=== PATIENT | male | born 1955 | race African-American/Black ===

== ENCOUNTER 2016-10-28 11:38 | Emergency (ER) | payer OTHER ==
[2016-10-28 11:46] VITALS: BP 158/90; PULSE 87; TEMP 97.4; BMI 22.4
--- NOTE | 2016-10-28 12:25 | PDOC ---
"History of Present Illness - General Chief Complaint: Back Pain Stated Complaint: PAIN, REFILL RX Time Seen by Provider: 10/28/16 12:21 History Source: Patient Exam Limitations: No Limitations - History of Present Illness Initial Comments: 10/28/16 12:25 10/28/16 12:46 10/28/16 12:50 Chief complaint: Right sided lower back pain with radiation down right leg to foot since August 2016 History of present illness: Patient is a 61-year-old male with a history of hypertension who is been on dialysis at [facility] for the last 20 years. Patient reports that he was hospitalized at [facility] August 2016 due to a clogged infected port he developed right sided lower back pain that radiating down his right leg with tingling of his right foot. Patient reports that he had CAT scans of his back and MRIs however he was not told any official diagnosis. Patient is currently ambulating with a walker. Patient reports that he has been taking Tylenol [id number] with out relief of pain slightly minimizes pain. Patient reports that when he was in the hospital he was given oxycodone that helped and upon discharge tramadol which was not very effective according to patient. Patient does not know what caused his right sided lower back pain. Patient currently reports the pain is a 9 out of 10 right-sided lower back pain radiating down right leg to foot with slight tingling of his toes. 10/28/16 12:56 10/28/16 12:56 Occurred: reports: other (since 09/07) Severity: reports: severe (right sided lower back pain with radiculopathy rt. leg) Pain Location: reports: back (right sided lower back with radiation down rt. leg ) Method of Injury: Yes: unknown Modifying Factors: improves with: None Loss of Consciousness: no loss of consciousness Past History - Past Medical History Allergies/Adverse Reactions: Allergies Allergy/AdvReac Type Severity Reaction Status Date / Time No Known Allergies Allergy Verified 10/28/16 12:57 Home Medications: Ambulatory Orders Oxycodone HCl/Acetaminophen [Percocet 5-325 mg Tablet] 1 tab PO Q6H PRN #15 tablet MDD 4 10/28/16 Dialysis: Yes Other medical history: lumbar radiculopathy since 08/2016 - Immunization History Immunization Up to Date: Yes - Psycho/Social/Smoking Cessation Hx Suicidal Ideation: No Smoking History: Never smoked Have you smoked in the past 12 months: No Information on smoking cessation initiated: No Hx Alcohol Use: No Drug/Substance Use Hx: No Review of Systems - Review of Systems Able to Perform ROS?: Yes Constitutional: No: Symptoms Reported HEENTM: No: Symptoms Reported Respiratory: No: Symptoms reported Cardiac (ROS): No: Symptoms Reported ABD/GI: No: Symptoms Reported : No: Symptoms Reported Musculoskeletal: Yes: Back Pain (right lower back pain with radiation down rt. leg) Neurological: Yes: Tingling (rt. foot) *Physical Exam - Vital Signs Last Vital Signs Temp Pulse Resp BP Pulse Ox 97.4 F L 87 20 158/90 99 10/28/16 11:42 10/28/16 11:42 10/28/16 11:42 10/28/16 11:42 10/28/16 11:42 - Physical Exam General Appearance: Yes: Appropriately Dressed Respiratory/Chest: positive: Lungs Clear, Normal Breath Sounds. negative: Chest Tender, Respiratory Distress Cardiovascular: positive: Regular Rhythm, Regular Rate, S1, S2 Musculoskeletal: positive: Normal Inspection, Decreased Range of Motion (from waist), Other (rt. sided lower back pain with radiation down rt. leg to foot ). negative: CVA Tenderness, CVA Tenderness (R), CVA Tenderness (L), Muscle Spasm Integumentary: positive: Normal Color Neurologic: positive: Alert, Normal Response, Motor Strength 5/5 (lower legs), Responsive. negative: Respond to painful stimul, Sensory Deficit (legs) Medical Decision Making - Medical Decision Making Patient is a 61-year-old male with a history of hypertension who is been on dialysis at [facility] for the last 20 years. Patient reports that he was hospitalized at [facility] August 2016 due to a clogged infected port he developed right sided lower back pain that radiating down his right leg with tingling of his right foot. Patient reports that he had CAT scans of his back and MRIs however he was not told any official diagnosis. Patient is currently ambulating with a walker. Patient reports that he has been taking Tylenol [id number] with out relief of pain slightly minimizes pain. Patient reports that when he was in the hospital he was given oxycodone that helped and upon discharge tramadol which was not very effective according to patient. Patient does not know what caused his right sided lower back pain. Patient currently reports the pain is a 9 out of 10 right-sided lower back pain radiating down right leg to foot with slight tingling of his toes. lumbar radiculopathy down right leg Plan: Percocet 5 mg/325 mg by mouth now then every 6 hours as needed for severe pain # 15 tabs follow-up in orthopedic clinic at [facility] as soon as possible 10/28/16 12:25 Search Terms: rowan Valera, 1955 Search Date: 10/28/2016 12:15:01 PM This report was requested by: Marika Haynes | Reference #: [id number] Others' Prescriptions Patient Name: Rowan Valera Date: 1955 Address: [address] [place] [address] Sex: Male Rx Written Rx Dispensed Drug Quantity Days Supply Prescriber Name 09/16/2016 09/16/2016 oxycodone hcl 5 mg tablet 30 5 Kelly Arrington 08/27/2016 08/28/2016 tramadol hcl 50 mg tablet 30 15 Janene Steele MD 10/28/16 12:44 10/28/16 12:51 10/28/16 12:57 10/28/16 13:06 *DC/Admit/Observation/Transfer Diagnosis at time of Disposition: Lumbar radiculopathy, right - Discharge Dispostion Disposition: HOME Condition at time of disposition: Stable - Prescriptions Prescriptions: Oxycodone HCl/Acetaminophen [Percocet 5-325 mg Tablet] 1 tab PO Q6H PRN #15 tablet MDD 4 PRN Reason: Pain - Patient Instructions Additional Instructions: Follow-up with orthopedist at [facility] at [phone] Return to emergency room if any numbness of groin or leg or foot or any incontinency Patient Voiced understanding of discharge instructions and all questions were answered"
[2016-10-28] MEDS ORDERED: OXYCODONE/APAP 5/325MG COMBO TABLET PO ONE (12:46)
== END 2016-10-28 13:28 | disposition home or self-care (01) ==
LOC: JERFT 11:38
DX: M54.16 Radiculopathy, lumbar region (principal); I12.0 Hypertensive chronic kidney disease with stage 5 chronic kidney disease or end stage renal disease; N18.6 End stage renal disease; N17.8 Other acute kidney failure; Z99.2 Dependence on renal dialysis
CPT/HCPCS: 99281-25

== ENCOUNTER 2018-06-29 12:48 | Emergency (ER) | payer OTHER ==
[2018-06-29 12:58] VITALS: BP 110/71; PULSE 103; TEMP 98.3; BMI 22.4
--- NOTE | 2018-06-29 13:58 | PDOC ---
History of Present Illness - General Chief Complaint: Back Pain Stated Complaint: BACK PAIN Time Seen by Provider: 06/29/18 13:17 History Source: Patient Exam Limitations: No Limitations - History of Present Illness Initial Comments: 06/29/18 13:58 62 yr male with c/o low back pain chronic worse since tuesday. Pt took 2 tylenol this morning. neg abd pain, pt has been using laxatives for constipation. Pt has history of dialysis, cardiac stent, chronic back, shoulder neck pain , multiple surgeries to the neck and shoulder. Pt denies fever or chills, no recent URI. no chest pain or vomiting. 06/29/18 14:00 06/29/18 15:01 Past History - Past Medical History Allergies/Adverse Reactions: Allergies Allergy/AdvReac Type Severity Reaction Status Date / Time No Known Allergies Allergy Verified 06/29/18 12:58 Home Medications: Ambulatory Orders Aspirin [ASA -] 81 mg PO DAILY 11/04/16 Cinacalcet HCl [Sensipar -] 30 mg PO TID 11/04/16 Clopidogrel Bisulfate [Plavix -] 75 mg PO DAILY 11/04/16 Lisinopril [Prinivil] 20 mg PO DAILY 11/04/16 Oxycodone HCl/Acetaminophen [Percocet 10-325 mg Tablet] 1 each PO BID PRN #60 tab MDD 2 11/04/16 Sevelamer HCl [Renagel] 800 mg PO DAILY 11/04/16 Diazepam [Valium] 5 mg PO Q8H PRN #12 tablet MDD 15mg 06/29/18 Anemia: No Asthma: No Cancer: No Cardiac Disorders: No COPD: No CHF: No Dementia: No Dialysis: Yes (tue, tue, tuesday) GI Disorders: No Disorders: No HTN: Yes (in the past) Hypercholesterolemia: No Liver Disease: No Seizures: No Thyroid Disease: No - Surgical History Orthopedic Surgery: Yes (right arm shunt, left arm shunt, left leg shunt, breastplate shunt) - Immunization History Immunization Up to Date: Yes - Suicide/Smoking/Psychosocial Hx Smoking History: Never smoked Have you smoked in the past 12 months: No Information on smoking cessation initiated: No Hx Alcohol Use: No Drug/Substance Use Hx: No Substance Use Type: None Hx Substance Use Treatment: No Trauma Specific PMHX - Complaint Specific PMHX Arthritis: Yes Review of Systems - Review of Systems Able to Perform ROS?: Yes Is the patient limited [place]ian proficient: No Constitutional: No: Symptoms Reported HEENTM: No: Symptoms Reported Respiratory: No: Symptoms reported Cardiac (ROS): No: Symptoms Reported ABD/GI: Yes: Symptoms Reported : No: Symptoms Reported Musculoskeletal: Yes: Symptoms Reported, Back Pain *Physical Exam - Vital Signs Last Vital Signs Temp Pulse Resp BP Pulse Ox 98.3 F 103 H 19 110/71 97 06/29/18 12:54 06/29/18 12:54 06/29/18 12:54 06/29/18 12:54 06/29/18 12:54 - Physical Exam General Appearance: Yes: Nourished, Appropriately Dressed HEENT: positive: EOMI, RASHAWN Respiratory/Chest: positive: Lungs Clear, Normal Breath Sounds Cardiovascular: positive: Regular Rhythm, Regular Rate Musculoskeletal: positive: Normal Inspection, Decreased Range of Motion, Muscle Spasm, Vertebral Tenderness. negative: CVA Tenderness, CVA Tenderness (R), CVA Tenderness (L) Extremity: positive: Normal Capillary Refill, Normal Inspection, Normal Range of Motion, Other (right leg pos SLR ) Integumentary: positive: Normal Color, Dry, Warm, Other (multiple scars to neck , chest, shoulders ) Medical Decision Making - Medical Decision Making 06/29/18 14:00 cc: acute on chronic pain, pt states he has had for 4 days worse when standing from sitting, with sciatica to the right leg neg saddle anesthesia, pt does not make urine (for 15 yrs on dialysis t, th, sat ) denies any suprapubic tenderness. neg nvd. will get xrays of lumbar thoracic spine will give tylenol for pain dc with muscle relaxant as pt has spasm to the lumbar paraspinal soft tissue spine 06/29/18 14:47 06/29/18 15:02 xrays are negative for fractures results given to the patient dc with valium, tylenol follow up with the neurosurgeon for back pain. *DC/Admit/Observation/Transfer Diagnosis at time of Disposition: Chronic lower back pain Qualifiers: Back pain laterality: right Sciatica presence: with sciatica Sciatica laterality: sciatica of right side Qualified Code(s): M54.41 - Lumbago with sciatica, right side - Discharge Dispostion Disposition: HOME Condition at time of disposition: Good - Prescriptions Prescriptions: Diazepam [Valium] 5 mg PO Q8H PRN #12 tablet MDD 15mg PRN Reason: Muscle Spasms - Referrals Referrals: Shaq Penaloza MD, FA[facility] [Staff Physician] - - Patient Instructions Additional Instructions: follow with the neurosurgeon for follow up call today to make appointment for next week take valium for muscle spasm do not drive or operate machinery while taking this medication take tylenol extra strength every 6hrs as well apply warm heating pad to low back every 4hrs for 30 minutes return if any worsening symptoms - Post Discharge Activity
[2018-06-29] MEDS ORDERED: ACETAMINOPHEN 500 MG TABLET (FP) PO ONE (14:38)
[2018-06-29] MEDS ORDERED: ACETAMINOPHEN 500 MG TABLET (FP) ONE (14:45)
== END 2018-06-29 15:15 | disposition home or self-care (01) ==
LOC: JERFT 12:48
DX: M54.41 Lumbago with sciatica, right side (principal); I25.10 Atherosclerotic heart disease of native coronary artery without angina pectoris; I13.11 Hypertensive heart and chronic kidney disease without heart failure, with stage 5 chronic kidney disease, or end stage renal disease; N18.6 End stage renal disease; Z99.2 Dependence on renal dialysis; Z95.5 Presence of coronary angioplasty implant and graft
CPT/HCPCS: 72070-TC-FY; 72100-TC-FY; 99281-25